=== PATIENT | female | born 1990 ===

== ENCOUNTER 2018-07-28 11:38 | Outpatient (CLI) | payer OTHER | END 2018-07-28 12:28 | disposition home or self-care (01) | LOC: NST 11:38 | DX: Z34.83 Encounter for supervision of other normal pregnancy, third trimester (principal) ==

== ENCOUNTER 2018-08-04 12:23 | Outpatient (CLI) | payer OTHER | END 2018-08-04 13:37 | disposition home or self-care (01) | LOC: NST 12:23 | DX: Z34.83 Encounter for supervision of other normal pregnancy, third trimester (principal) ==

== ENCOUNTER 2018-09-07 13:47 | Inpatient (IN) | payer OTHER ==
[~2018-09-07] VITALS: Ht 160 cm; Wt 90.3 kg
[2018-09-14] MEDS ORDERED: PRENATAL PLUS1 EAC2 PO (12:09)
== END 2018-09-17 13:14 | disposition home or self-care (01) | DRG 788 ==
LOC: OB/GYN 13:47 → O/R 09-14 10:42 → SURG-SUITE 09-14 16:55
PROVIDERS: ADMIT Obstetrics & Gynecology
PROC: 3E033VJ Introduction of Other Hormone into Peripheral Vein, Percutaneous Approach (ICD-10-PCS; 2018-09-14)
PROC: 4A1HXCZ Monitoring of Products of Conception, Cardiac Rate, External Approach (ICD-10-PCS; 2018-09-14)
PROC: 10D00Z1 Extraction of Products of Conception, Low, Open Approach (ICD-10-PCS; principal; 2018-09-14 13:00)
DX: O34.211 Maternal care for low transverse scar from previous cesarean delivery (principal); O75.82 Onset (spontaneous) of labor after 37 completed weeks of gestation but before 39 completed weeks gestation, with delivery by (planned) cesarean section; O82 Encounter for cesarean delivery without indication; Z3A.39 39 weeks gestation of pregnancy; Z37.0 Single live birth; Z22.330 Carrier of Group B streptococcus